=== PATIENT | female | born 1955 | race Caucasian/White ===

== ENCOUNTER 2017-03-10 20:04 | Inpatient (IN) | payer MEDICARE ==
[~2017-03-10] VITALS: Ht 170.2 cm; Wt 57.0 kg
[2017-03-10 20:08] VITALS: BP 138/95
[2017-03-10] MEDS ORDERED: BACLOFEN 10MG T10 MG PO (20:22)
[2017-03-10] MEDS ORDERED: GLYCOPYRROLATE1 MG PO (20:24)
[2017-03-10] MEDS ORDERED: RILUTEK50 MG PO (20:24)
[2017-03-10] MEDS ORDERED: NATURAL VITAM1000 MG PO (20:25)
[2017-03-10] MEDS ORDERED: HYOSCYAMINE0.125 M1 PO (20:26)
[2017-03-10] MEDS ORDERED: MELATIN1 TAB PO (20:27)
[2017-03-10] MEDS ORDERED: MIRALAX17 GM/PACK PO (20:28)
[2017-03-10 20:40] LABS: LYMPH # 1.2 K/mm3 (0.7-4.5); LYMPH % 9.4 % (10-50.0)
--- NOTE | 2017-03-10 20:50 | Emergency Room Report ---
History of Present Illness Time Seen by 2021 Presenting Problem in Triage Pt arrived:Ambulance Stretcher Presenting Problem:PATIENT FROM ASSISTED WITH ALS.REPORTS GENERALIZES SINCE THIS AM COUGHING WITH YELLOW SPUTUM. 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 N Clinical Suspician of Infection? N Mental Status: 1 - Regular (Normal Baseline) Sepsis Risk:Possible Sepsis Risk Have you (or family members/close friends) recently traveled outside the [place]? N If Yes, where/when: Have you had exposure to infectious disease within the past month? N TB? Other? Specify: Comment The patient is brought in by ambulance from the long-term with reports of increased lethargy, muscle weakness, increased edema, scattered rhonchi throughout lung rodriguez. She was started on Lasix per G-tube. She currently denies any pain. She denies shortness of breath. She denies vomiting or diarrhea. He has ALS, she communicates by writing on a board. ALLERGIES Coded Allergies: No Known Allergies (03/10/17) Home Medications Reported Medications BACLOFEN (Baclofen) 10 MG PO TID Glycopyrrolate 1 MG PO BID Riluzole (Rilutek) 50 MG PO BID Ascorbic Acid (Vitamin C) 1,000 MG PO DAILY HYOSCYAMINE SULFATE (Anaspaz) 0.125 MG PO TID PRN SECRETIONS MELATONIN (Melatin) 1 TAB PO DAILY PRN SLEEP Polyethylene Glycol 3350 (Miralax) 17 GM PO DAILY PRN CONSTIPATION History Medical History General CAD? No Angina: No NE: No Hypertension? No Hyperlipidemia? No CHF? No DVT? No PE? No COPD? No Asthma? No Anemia? No GERD? No Gastric ulcers? No GI Bleed? No Hernia? No Thyroid Problems? No Hypothyroidism? No CVA? No Seizures? No Diabetes? No Renal Insuffiency? No End Stage Renal Disease? No UTI? No Stones? No BPH? No GB Disease: No Nephritic Syndrome? No Asplenia? No Hepatitis? No Sickle Cell Disease? No Arthritis? No Migraines? No Cataracts? No Glaucoma? No MRSA? No HIV? No TB? No Anxiety? Yes Depression? Yes Cancer? Yes Site: BREAST More? Yes Additional hx: ALS, DYSPHAGIA, DYSARTHRIA, ANARTHRIA APNEA Immunization Hx DT/Tetanus Unknown Surgical Hx Previous Surgery?Y R MASTECTOMY G TUBE Social History Smoking Hx Smoker: Never Smoker Tobacco: No Type Cigarettes Alcohol Alcohol: No Review of Systems All Other Systems Reviewed and Negative (Limited by condition) Constitutional denies fever Respiratory denies shortness of breath Cardiovascular denies chest pain, edema Gastrointestinal denies abdominal pain, denies diarrhea, denies vomiting Psychiatric/Neurological denies headache Physical Exam Vital Signs Vital Signs Date Time Temp Pulse Resp B/P Pulse O2 O2 Flow FiO2 Ox Delivery Rate 03/10 2146 99.0 97 22 155/93 97 2 03/10 2101 104 22 143/95 95 03/10 2008 98.4 110 22 138/95 95 03/10 2007 95 General Appearance speech dysarthric Eye Exam - bilateral eye normal exam, bilateral eye PERRL, bilateral eye EOMI Ear, Nose, Throat hearing grossly normal, normal ENT inspection Neck normal inspection, non-tender, supple, full range of motion Respiratory Status Yes: trachea midline, chest symmetrical, non tender chest. No: respiratory distress. Lung Sounds bilateral: normal breath sounds, lungs clear. Cardiovascular normal exam, regular rate/rhythm, no peripheral edema, no gallop, no JVD, no murmur, no rub, normal peripheral pulses Peripheral Pulses Pulses normal Yes Gastrointestinal normal bowel sounds, normal exam, non tender, soft, no organomegaly Extremities 2+ pitting edema of feet, 1+ pitting edema of ankles. RIGHT foot dorsum shows erythema and warmth, but no tenderness. Calves are nontender. No cords. Normal pulses, capillary refill, sensation, movement of toes. No openings in the skin noted. Neurologic alert, generalized weakness Mental status normal mood/affect Skin intact, normal color, warm/dry Medical Decision Making LABS/Meds/Orders Pt receiving controlled substance in ED? No Results/Orders Laboratory Tests 03/10/17 2015: Lactic Acid 1.5 03/10/17 2015: Creatine Kinase 354 H, CK-MB (CK-2) Rel Index 3.2, CK and CKMB Interp 11.2 *H, Troponin I 0.71 H 03/10/17 2015: B-Natriuretic Peptide 12 03/10/172014: Sodium 135 L, Potassium 3.7, Chloride 93 L, Carbon Dioxide 39 H, BUN 14, Creatinine 0.4 L, Estimated Creat Clear 127, Estimated GFR (MDRD) 162, Glucose 91, Calcium 9.0, Total Bilirubin 0.3, AST 51 H, ALT 54, Alkaline Phosphatase 115, Total Protein 8.1, Albumin 3.4, Globulin 4.7 H, Albumin/Globulin Ratio 0.7 L, D-Dimer 196, WBC 12.9 H, RBC 4.67, Hgb 14.0, Hct 43.4, MCV 92.8, RDW 12.7, Plt Count 198, MPV 8.6, Gran % 82.4 H, Gran # 10.6 H, Lymphocytes % 9.4 L, Monocytes % 7.0, Eosinophils % 0.9, Basophils % 0.2, Lymphocytes # 1.2, Monocytes # 0.9, Eosinophils # 0.1, Basophils # 0.0, PUBS MCHC 32.3, MCH 30.0 Current Medication Orders Sig/Darcie Start time Last Medication Dose Route Stop Time Status Admin Miscellaneous 1 EACH CONSULT PHARMACY 03/10 2200 AC Information * 03/11 0950 Piperacillin Sod/ 3.375 GM ONCE ONE 03/10 2200 AC Tazobactam Sod IV 03/10 2229 Sodium Chloride 50 ML Aspirin 324 MG ONCE ONE 03/10 2130 DC 03/10 PO 03/10 Aspirin 0 .STK-MED ONE 03/10 2127 DC .ROUTE Sodium Chloride 10 ML PRN PRN 03/10 2030 AC IV 03/11 2017 Orders Procedure Date/time Status Decision to admit 03/10 2149 Active 12 LEAD EKG-ABRAHAN (INITIAL) 03/10 2058 Active ELECTROCARDIOGRAM REQUEST 03/10 2058 Active CARDIAC ENZYMES 03/10 2058 Complete D-DIMER 03/10 2057 Complete BRAIN NATRIURETIC PEPTIDE 03/10 2057 Complete CHEST-PORTABLE 03/10 2019 Active IV SALINE LOCK 03/10 2019 Active OXYGEN PER NURSE 03/10 2019 Active CULTURE, BLOOD 03/10 2019 Active LACTIC ACID 03/10 2019 Complete CBC WITH AUTO DIFF 03/10 2019 Complete CHEM 12 PROFILE 03/10 2019 Complete CM/EKG CM/EKG Comments EKG interpreted by Ferdinand Peraza MD: Rhythm: sinus tachycardia Rate: 102 [place]: normal Ectopy: none Conduction: normal ST Segment Changes: none T Wave Changes: none Q Waves: Inferior and anterior No evidence of acute ischemia or injury Significant baseline artifact present No prior electrocardiograms available for comparison XRAY/CT/US XRAY/CT/US XRAY chest Comment X-ray interpreted by Ferdinand Peraza M.D.: normal heart size, no effusions, no infiltrates Progress - 9:45 PM: I have discussed the case with Dr. Delaney who agrees to admit the patient to the hospital. We discussed the patient's clinical information, including history, exam, laboratory and radiology results and ED course. Per hospital procedure, I will write temporary bridge inpatient orders on the patient. Specific orders requested by the admitting physician: Vancomycin and Zosyn, serial cardiac enzymes 10:00 PM: Daughter is now here. I discussed findings with her. She states the patient's swelling of the legs began on February 24. She endorses the symptoms listed in the patient's transfer paperwork Departure Departure Disposition Still a Patient Clinical Impression Primary Impression: Cellulitis of right foot Secondary Impressions: Cardiac enzymes elevated Condition STABLE ED Critical Care Critical Care No
--- OUTSIDE RECORDS SUMMARY | 2017-03-10 21:02 | External Medical Summary Rpt ---
Demographics Home Phone Preferred Language Tamazight Marital Status Unknown Anabaptist Affiliation Unknown Race Unknown Ethnic Group Unknown Author Author , Organization [employer] Address Unknown Phone Unavailable Purpose Continuity of Care Document - through 2016
--- OUTSIDE RECORDS SUMMARY | 2017-03-10 21:02 | External Medical Summary Rpt ---
Author Author [employer], [employer] Organization [employer] Address Unknown Phone Unavailable
--- OUTSIDE RECORDS SUMMARY | 2017-03-10 21:02 | External Medical Summary Rpt ---
Author Author [employer] Organization [employer] Address Unknown Phone Unavailable Purpose Continuity of Care Document - through 2016
--- OUTSIDE RECORDS SUMMARY | 2017-03-10 21:02 | External Medical Summary Rpt ---
Demographics Home Phone Preferred Language Wolof Marital Status Unknown Lutheran Affiliation Unknown Race Unknown Ethnic Group Unknown Author Author , Organization [employer] Address Unknown Phone Unavailable Purpose Continuity of Care Document - through 2016
[2017-03-10 23:14] VITALS: BP 155/93
[2017-03-10 23:23] VITALS: BP 133/61
[2017-03-11] VITALS (7 sets, daily range): BP systolic 114–194; BP diastolic 72–101
[2017-03-11 07:36] LABS: HEMOGLOBIN 14.3 g/dL (12.2-16.2); LYMPH # 1.3 K/mm3 (0.7-4.5); LYMPH % 10.2 % (10-50.0)
--- NOTE | 2017-03-11 08:21 | HISTORY AND PHYSICAL REPORT ---
History and Physical ([facility]) Date of admission: 03/10/17 Chief complaint: Weakness, swelling, chest congestion History: History of Present Illness: Ms. Allen is a 62-year-old white female a resident of [facility] who is unknown to me.. She has advanced ALS followed by Dr. Hanson at . She has dysarthric speech related to her ALS and has difficulty communicating but her daughter is at the bedside and provides her history. Until December she was living at home with her daughter and son-in-law until her needs progressed to the point that she was admitted to the [facility] in December. Her daughter notes that she typically is able to be independent and ambulates on her own. However over the past couple weeks she started having swelling in her feet and legs and became weaker. No history of shortness of breath or chest pain. [facility] had just started her on Lasix. Yesterday the nursing staff noted she was having increased chest congestion and lethargy and she was therefore sent to the emergency room for further evaluation. On evaluation in the emergency room she was noted to have some airway rhonchi. There was bilateral lower extremity edema and some increased erythema of the right foot with concern for cellulitis. Her white blood cell count was mildly elevated and her cardiac enzymes were also elevated. EKG showed no ischemic changes. Chest x-ray was unremarkable. She was admitted with the diagnosis of cellulitis, elevated cardiac enzymes, possible bronchitis for further evaluation and treatment. She rested fairly well through the night. She is able to answer yes and no questions appropriately. He denies chest pain or shortness of breath. She does have a slightly congested cough. She is n.p.o. because of her ALS and has a permanent G-tube. Her cardiac inzymes have trended downward Past Medical History: Medical History: CAD? No Angina: No MA: No Hypertension? No Hyperlipidemia? No CHF? No DVT? No PE? No COPD? No Asthma? No Anemia? No GERD? No Gastric ulcers? No GI Bleed? No Hernia? No Thyroid Problems? No Hypothyroidism? No CVA? No Seizures? No Diabetes? No Renal Insuffiency? No UTI? No Stones? No BPH? No GB Disease: No Nephritic Syndrome? No Asplenia? No Hepatitis? No Sickle Cell Disease? No Arthritis? No Migraines? No Cataracts? No Glaucoma? No MRSA? No HIV? No TB? No Anxiety? Yes Depression? Yes Cancer? Yes Site: BREAST More? Yes Additional hx: ALS, DYSPHAGIA, DYSARTHRIA Surgical history: Previous Surgery?Y bilateral mastectomy with reconstruction for right side breast cancer. G TUBE Medications: Reported Medications BACLOFEN (Baclofen) 10 MG PO QID Riluzole (Rilutek) 50 MG PO BID Ascorbic Acid (Vitamin C) 1,000 MG PO DAILY MELATONIN (Melatin) 3 MG PO QHS PRN SLEEP Furosemide 20 MG PO DAILY Acetaminophen 1,000 MG PO Q6HP PRN PAIN/FEVER Hyoscyamine Sulfate (Levsin-Sl) 0.125 MG SL Q8HP PRN EXCESS SALIVA Glycopyrrolate 1 MG PO BID HYOSCYAMINE SULFATE (Anaspaz) 0.125 MG PO TID PRN SECRETIONS Polyethylene Glycol 3350 (Miralax) 17 GM PO DAILY PRN CONSTIPATION Allergies: Coded Allergies: No Known Allergies (03/10/17) Family History: Family history: Negative for: CAD, DM, HTN, seizure, stroke. Additional family history: No family hx of ALS Social History: Smoking Hx Tobacco: No Smoker: Never Smoker Type: N/A Packs/day: N/A Are you exposed to second hand No Alcohol: Alcohol: No Hx of Drug Use: Drug Use? No Patient's support system is: excellent Review of Systems: Patient unresponsive? No Constitutional Positive for: lethargy, weak. No: recent weight loss. ENT No: ear ache, nasal congestion, sinus problems, sore throat. Cardiovascular Positive for: edema. No: PND, chest pain, palpitations. Respiratory No: shortness of air, hemoptysis, pleuritic pain, wheezing. GI Positive for: dysphagia. No: abdominal pain, constipation, diarrhea, hematemeis , melena, vomitting. (female) No: flank pain, hematuria. Skin No: bruising, itching, rash. Neurological Positive for: unable to speak (dysarthric). No: change in LOC, bowel dysfunction, confusion, syncope. Immune/allergy No: hives, itching. Eyes No: vision loss, photophobia. Musculoskeletal Positive for: extremity swelling. No: joint pain. Heme No: bruising. Psychiatric Positive for: anxious. No: confused. Physical Exam: Vital signs: 1ST Vital Signs Result Date Time Pulse Ox 95 03/10 2007 O2 Flow Rate 2 03/10 2007 Resp 22 03/10 2007 B/P 138/95 03/10 2008 Temp 98.4 03/10 2008 Pulse 110 03/10 2008 O2 Delivery ROOM AIR 03/10 2314 Exam: General appearance: alert, no acute distress, normal eye contact Eyes: anicteric, conjunctiva clear, EOM's w/normal ROM ENT: mucous membranes moist, pharynx normal Neck: no carotid bruit, supple Cardiovascular: regular rate & rhythm, no murmur Respiratory: clear to auscultation, normal breath sounds ABD: non-distended, normal bowel sounds, soft, no tenderness, no guarding, GT in place Extremities: trace edema and erythema of right foot Musculoskeletal: generalized weakness Skin: dry, normal color, warm Neuro: alert, speech dysarthric, generalized weakness Lab data: Labs: Laboratory Tests 03/11/17 0650: Creatine Kinase 220 H, CK-MB (CK-2) Rel Index 3.7, CK and CKMB Interp 8.2 *H, Troponin I 0.28 H, WBC 13.2 H, RBC 4.80, Hgb 14.3, Hct 45.1, MCV 94.1, RDW 12.7, Plt Count 224, MPV 8.4, Gran % 84.1 H, Gran # 11.1 H, Lymphocytes % 10.2 , Monocytes % 4.8, Eosinophils % 0.7, Basophils % 0.2, Lymphocytes # 1.3, Monocytes # 0.6, Eosinophils # 0.1, Basophils # 0.0, PUBS MCHC 31.6 L, MCH 29.7 03/11/17 0400: Creatine Kinase 215 H, CK-MB (CK-2) Rel Index 3.9, CK and CKMB Interp 8.3 *H, Troponin I 0.37 H 03/11/17 0110: Creatine Kinase 266 H, CK-MB (CK-2) Rel Index 3.2, CK and CKMB Interp 8.5 *H, Troponin I 0.47 H 03/10/17 2015: Lactic Acid 1.5 03/10/17 2015: Creatine Kinase 354 H, CK-MB (CK-2) Rel Index 3.2, CK and CKMB Interp 11.2 *H, Troponin I 0.71 H 03/10/17 2015: B-Natriuretic Peptide 12 03/10/17 2015: Sodium 135 L, Potassium 3.7, Chloride 93 L, Carbon Dioxide 39 H, BUN 14, Creatinine 0.4 L, Estimated Creat Clear 127, Estimated GFR (MDRD) 162, Glucose 91, Calcium 9.0, Total Bilirubin 0.3, AST 51 H, ALT 54, Alkaline Phosphatase 115, Total Protein 8.1, Albumin 3.4, Globulin 4.7 H, Albumin/Globulin Ratio 0.7 L, D-Dimer 196, WBC 12.9 H, RBC 4.67, Hgb 14.0, Hct 43.4, MCV 92.8, RDW 12.7, Plt Count 198, MPV 8.6, Gran % 82.4 H, Gran # 10.6 H, Lymphocytes % 9.4 L, Monocytes % 7.0, Eosinophils % 0.9, Basophils % 0.2, Lymphocytes # 1.2, Monocytes # 0.9, Eosinophils # 0.1, Basophils # 0.0, PUBS MCHC 32.3, MCH 30.0 Microbiology 03/11 2017 SPUTUM: Sputum Culture - RES 03/11 2017 SPUTUM: Gram Stain - RES 03/10 2015 BLOOD: Anaerobic Blood Culture - RECD 03/10 2015 BLOOD: Aerobic Blood Culture - RECD 03/10 2015 BLOOD: Anaerobic Blood Culture - RECD 03/10 2015 BLOOD: Aerobic Blood Culture - RECD Diagnosis(es): 1. Cellulitis of right foot 2. Cardiac enzymes elevated 3. Leg edema 4. ALS (amyotrophic lateral sclerosis) 5. Dysarthria 6. Dysphagia, neurologic 7. Acute bronchitis Plan: She has been admitted and empirically started on vancomycin and Zosyn for her cellulitis and possible upper respiratory infection. We will repeat her chest x- ray today. Serial cardiac enzymes have trended downward and she denies any current or recent chest pain. There is no history of coronary disease. In light of her recent increased edema, we'll plan to obtain an echocardiogram during this admission. She will be continued [facility] the [facility] as well as her current tube feedings. She is a DNR status and these wishes will be honored. at [id number]
--- NOTE | 2017-03-11 08:35 | RADIOLOGY REPORT PS360 ---
CHEST-PORTABLE COMPARISON: None HISTORY: Generalized weakness, rales and just TECHNIQUE: Portable upright chest FINDINGS: Is a somewhat poor inspiration however lung rodriguez are clear of infiltrate. There is subtle diffuse increased opacity of the lower lung rodriguez and this is likely secondary to the fact the patient has bilateral breast implants which show minimal scattered calcification in the rims of the implants. Cardiac size is normal and the vascularity is normal. There are couple of surgical clips right axilla. IMPRESSION: Nonacute chest findings
--- NOTE | 2017-03-11 11:35 | PHARMACY CLINIC NOTE ---
Patient Demographics Patient Demographics Admission date: 03/10/17 Date: 03/11/17 Time: 1134 Allergies Coded Allergies: No Known Allergies (03/10/17) HEIGHT- FT: 5 IN: 7.00 K.955 VTE General Information Labs: Laboratory Tests 03/11 Hematology Hgb (12.2 - 16.2 g/dL) 14.3 14.0 Hct (37.0 - 47.0 %) 45.1 43.4 Plt Count (142 - 424 K/mm3) 224 198 Disclaimer The following section includes nursing documentation that has been pulled in for pharmacy review. Patient's VTE score: 2 Patient's VTE Risk: VERY LOW RISK Clinical trial participant? No VTE prophylaxis NQF [id number] VTE prophylaxis ordered? Yes Type of prophylaxis/treatment: DENICE at [id number]
--- NOTE | 2017-03-11 11:48 | RADIOLOGY REPORT PS360 ---
CHEST-PORTABLE COMPARISON: Portable upright chest 03/10/2017 HISTORY: Symptoms of bronchitis TECHNIQUE: Portable upright chest FINDINGS: This is a slightly poor inspiration however lung rodriguez are clear of infiltrate. Cardiac size is normal and the vascularity is normal. Subtle hazy opacities are seen at the lung bases likely secondary to the patient's bilateral breast implants. There are monitor lines overlying the chest. IMPRESSION: Nonacute chest findings
[2017-03-11] MEDS ORDERED: FUROSEMIDE20 MG PO (13:45)
[2017-03-11] MEDS ORDERED: ACETAMINOPHEN500 M4 PO (13:47)
[2017-03-11] MEDS ORDERED: LEVSIN-SL0.125 MG SL (13:48)
--- NOTE | 2017-03-11 14:27 | CONSULT NOTE ---
Pharmacokinetic Consult Date of consult: 03/11/17 Time of consult: 1423 Referring provider: DR. ALFORD Reason for consult: VANCOMYCIN DOSING Allergies: Coded Allergies: No Known Allergies (03/10/17) Home Medications: Reported Medications BACLOFEN (Baclofen) 10 MG PO QID Riluzole (Rilutek) 50 MG PO BID Ascorbic Acid (Vitamin C) 1,000 MG PO DAILY MELATONIN (Melatin) 3 MG PO QHS PRN SLEEP Furosemide 20 MG PO DAILY Acetaminophen 1,000 MG PO Q6HP PRN PAIN/FEVER Hyoscyamine Sulfate (Levsin-Sl) 0.125 MG SL Q8HP PRN EXCESS SALIVA Glycopyrrolate 1 MG PO BID HYOSCYAMINE SULFATE (Anaspaz) 0.125 MG PO TID PRN SECRETIONS Polyethylene Glycol 3350 (Miralax) 17 GM PO DAILY PRN CONSTIPATION Height (feet): 5 Height (inches): 7.00 Medical History: CAD? No Angina: No NH: No Hypertension? No Hyperlipidemia? No CHF? No DVT? No PE? No COPD? No Asthma? No Anemia? No GERD? No Gastric ulcers? No GI Bleed? No Hernia? No Thyroid Problems? No Hypothyroidism? No CVA? No Seizures? No Diabetes? No Renal Insuffiency? No UTI? No Stones? No BPH? No GB Disease: No Nephritic Syndrome? No Asplenia? No Hepatitis? No Sickle Cell Disease? No Arthritis? No Migraines? No Cataracts? No Glaucoma? No MRSA? No HIV? No TB? No Anxiety? Yes Depression? Yes Cancer? Yes Site: BREAST More? Yes Additional hx: ALS, DYSPHAGIA, DYSARTHRIA Labs: Laboratory Tests 03/11/17 0650: Creatine Kinase 220 H, CK-MB (CK-2) Rel Index 3.7, CK and CKMB Interp 8.2 *H, Troponin I 0.28 H, WBC 13.2 H, RBC 4.80, Hgb 14.3, Hct 45.1, MCV 94.1, RDW 12.7, Plt Count 224, MPV 8.4, Gran % 84.1 H, Gran # 11.1 H, Lymphocytes % 10.2 , Monocytes % 4.8, Eosinophils % 0.7, Basophils % 0.2, Lymphocytes # 1.3, Monocytes # 0.6, Eosinophils # 0.1, Basophils # 0.0, PUBS MCHC 31.6 L, MCH 29.7 03/11/17 0400: Creatine Kinase 215 H, CK-MB (CK-2) Rel Index 3.9, CK and CKMB Interp 8.3 *H, Troponin I 0.37 H 03/11/17 0110: Creatine Kinase 266 H, CK-MB (CK-2) Rel Index 3.2, CK and CKMB Interp 8.5 *H, Troponin I 0.47 H 03/10/17 2015: Lactic Acid 1.5 03/10/17 2015: Creatine Kinase 354 H, CK-MB (CK-2) Rel Index 3.2, CK and CKMB Interp 11.2 *H, Troponin I 0.71 H 03/10/17 2015: B-Natriuretic Peptide 12 03/10/17 2015: Sodium 135 L, Potassium 3.7, Chloride 93 L, Carbon Dioxide 39 H, BUN 14, Creatinine 0.4 L, Estimated Creat Clear 127, Estimated GFR (MDRD) 162, Glucose 91, Calcium 9.0, Total Bilirubin 0.3, AST 51 H, ALT 54, Alkaline Phosphatase 115, Total Protein 8.1, Albumin 3.4, Globulin 4.7 H, Albumin/Globulin Ratio 0.7 L, D-Dimer 196, WBC 12.9 H, RBC 4.67, Hgb 14.0, Hct 43.4, MCV 92.8, RDW 12.7, Plt Count 198, MPV 8.6, Gran % 82.4 H, Gran # 10.6 H, Lymphocytes % 9.4 L, Monocytes % 7.0, Eosinophils % 0.9, Basophils % 0.2, Lymphocytes # 1.2, Monocytes # 0.9, Eosinophils # 0.1, Basophils # 0.0, PUBS MCHC 32.3, MCH 30.0 Microbiology 03/11 2017 SPUTUM: Sputum Culture - RES 03/11 2017 SPUTUM: Gram Stain - RES 03/10 2015 BLOOD: Anaerobic Blood Culture - RECD 03/10 2015 BLOOD: Aerobic Blood Culture - RECD 03/10 2015 BLOOD: Anaerobic Blood Culture - RECD 03/10 2015 BLOOD: Aerobic Blood Culture - RECD Plan: BASED ON PATIENT'S FACTORS, RECOMMEND CONTINUING WITH VANCOMYCIN 1 GM Q18H AT THIS TIME WITH NEXT DOSE SCHEDULED FOR 1500 TODAY. WILL OBTAIN TROUGH LEVEL TOMORROW MORNING PRIOR TO DOSE. PHARMACY WILL FOLLOW DAILY AND ADJUST APPROPRIATE. LANG VO PHARMNatali at [phone]
--- NOTE | 2017-03-11 15:30 | ACUTE CARE PROGRESS NOTE (QUA) ---
See Addendum Progress Notes Subjective Date 03/11/17 Time 1522 Note F/u Rounds: Returned to f/u on repeat CXR results and noted patient to be less responsive with more shallow respirations and increased resp rate. Maintaining sats at 90-92%. Nurses noted resp distress earlier when up to BSC but relieved with deep suctioning. Objective Exam General appearance: opens eyes but no verbal response. Cardiovascular: tachy but regular, no murmur Respiratory: RR 28 and shallow but o/w clear. No apparent secretions. Extremities: trace edema of right foot Reviewed: Repeat CXR again shows no acute infiltrates or pulmonary edema. No cardiomegaly Assessment/Plan Problem List 1. Cellulitis of right foot 2. Cardiac enzymes elevated 3. Leg edema 4. ALS (amyotrophic lateral sclerosis) 5. Dysarthria 6. Dysphagia, neurologic 7. Acute bronchitis Patient condition Guarded Plan: She is maintaining O2 sats but will check ABG to see if she is retaining CO2. She is DNR so treatment options are limited. This inpt stay is expected to cross 2 MNs from start of care Yes at 1534
[2017-03-11 16:43] LABS: ALLEN'S TEST PATIENT UNABLE; ARTERIAL ABE 19.7 MMOL/L (-2.4-+2.3); ARTERIAL PO2 144.2 MMHG (80-100); ARTERIAL TCO2 53.7 MMOL/L (23-27); OXYGEN 3.5LPM
--- NOTE | 2017-03-15 15:08 | DISCHARGE SUMMARY STANDARD ---
Discharge Summary (FCA2) Date of admission: 03/10/17 Date of discharge: 03/11/17 Problem List: 1. Respiratory failure 2. Respiratory acidosis 3. Cellulitis of right foot 4. Cardiac enzymes elevated 5. Leg edema 6. ALS (amyotrophic lateral sclerosis) 7. Dysarthria 8. Dysphagia, neurologic 9. Acute bronchitis History of present illness: Ms. Hill is a 62-year-old white female resident of [facility] who was unknown to Dr. Delaney. She has advanced ALS followed by Dr. Hanson at . She has dysarthric speech related to her ALS and has difficulty communicating but her daughter was at the bedside and provided her history. Until December she was living at home with her daughter and son-in-law until her needs progressed to the point that she was admitted to the [facility] in December. Her daughter noted that she typically was able to be independent and ambulate on her own. However over the few weeks prior to admission, she started having swelling in her feet and legs and became weaker. No history of shortness of breath or chest pain. Her primary physician at the long-term had just started her on Lasix. The nursing staff noted she was having increased chest congestion and lethargy and she was therefore sent to the emergency room for further evaluation. On evaluation in the emergency room she was noted to have some airway rhonchi. There was bilateral lower extremity edema and some increased erythema of the right foot with concern for cellulitis. Her white blood cell count was mildly elevated and her cardiac enzymes were also elevated. EKG showed no ischemic changes. Chest x-ray was unremarkable. She was admitted with the diagnosis of cellulitis, elevated cardiac enzymes, and possible bronchitis for further evaluation and treatment. She rested fairly well through the night. She was able to answer yes and no questions appropriately. She denied chest pain or shortness of breath. She had a slightly congested cough. She was n.p.o. because of her ALS and has a permanent G-tube. Her cardiac inzymes trended downward. Exam on admission: General appearance: alert, no acute distress, normal eye contact Eyes: anicteric, conjunctiva clear, EOM's w/normal ROM ENT: mucous membranes moist, pharynx normal Neck: no carotid bruit, supple Cardiovascular: regular rate & rhythm, no murmur Respiratory: clear to auscultation, normal breath sounds ABD: non-distended, normal bowel sounds, soft, no tenderness, no guarding, GT in place Extremities: trace edema and erythema of right foot Musculoskeletal: generalized weakness Skin: dry, normal color, warm Neuro: alert, speech dysarthric, generalized weakness Hospital Course: She was been admitted and empirically started on vancomycin and Zosyn for her cellulitis and possible upper respiratory infection. Serial cardiac enzymes trended downward and she denied any current or recent chest pain. There was no history of coronary disease. In light of her recent increased edema, an echocardiogram was ordered. She was continued on her maintenance medications from the long-term as well as her current tube feedings. She is a DNR status. A repeat CXR was ordered. She had just returned from her repeat CXR when there was noted to be less responsiveness with more shallow respirations and increased resp rate. Dr. Delaney went to see the patient. She was maintaining sats at 90-92%. He ordered an ABG and it showed respiratory acidosis. He felt this was on the basis of respiratory failure from her advanced ALS. He spoke to her daughter Bernadette, who had to return to her home in [place], and relayed the results of her blood gas and the deterioration in her respiratory status. She reiterated her mother's desire for DNR status. He offered a trial of BIPAP but Bernadette stated she had this available at the long-term and refused to use it. The plan was to continue with measures of comfort. Her family was at her bedside when her respirations ceased and her HR decreased and ceased. She was pronounced at 2225 and her remains were released to [facility]. Disposition: The patient's remains were released to the counts include 234 beds at the [facility]. at 1508
--- NOTE | 2017-03-15 15:08 | DISCHARGE SUMMARY STANDARD ---
Discharge Summary (FCA2) Date of admission: 03/10/17 Date of discharge: 03/11/17 Problem List: 1. Respiratory failure 2. Respiratory acidosis 3. Cellulitis of right foot 4. Cardiac enzymes elevated 5. Leg edema 6. ALS (amyotrophic lateral sclerosis) 7. Dysarthria 8. Dysphagia, neurologic 9. Acute bronchitis History of present illness: Ms. Hill is a 62-year-old white female resident of [facility] who was unknown to Dr. Delaney. She has advanced ALS followed by Dr. Hanson at . She has dysarthric speech related to her ALS and has difficulty communicating but her daughter was at the bedside and provided her history. Until December she was living at home with her daughter and son-in-law until her needs progressed to the point that she was admitted to the [facility] in December. Her daughter noted that she typically was able to be independent and ambulate on her own. However over the few weeks prior to admission, she started having swelling in her feet and legs and became weaker. No history of shortness of breath or chest pain. Her primary physician at the long term had just started her on Lasix. The nursing staff noted she was having increased chest congestion and lethargy and she was therefore sent to the emergency room for further evaluation. On evaluation in the emergency room she was noted to have some airway rhonchi. There was bilateral lower extremity edema and some increased erythema of the right foot with concern for cellulitis. Her white blood cell count was mildly elevated and her cardiac enzymes were also elevated. EKG showed no ischemic changes. Chest x-ray was unremarkable. She was admitted with the diagnosis of cellulitis, elevated cardiac enzymes, and possible bronchitis for further evaluation and treatment. She rested fairly well through the night. She was able to answer yes and no questions appropriately. She denied chest pain or shortness of breath. She had a slightly congested cough. She was n.p.o. because of her ALS and has a permanent G-tube. Her cardiac inzymes trended downward. Exam on admission: General appearance: alert, no acute distress, normal eye contact Eyes: anicteric, conjunctiva clear, EOM's w/normal ROM ENT: mucous membranes moist, pharynx normal Neck: no carotid bruit, supple Cardiovascular: regular rate & rhythm, no murmur Respiratory: clear to auscultation, normal breath sounds ABD: non-distended, normal bowel sounds, soft, no tenderness, no guarding, GT in place Extremities: trace edema and erythema of right foot Musculoskeletal: generalized weakness Skin: dry, normal color, warm Neuro: alert, speech dysarthric, generalized weakness Hospital Course: She was been admitted and empirically started on vancomycin and Zosyn for her cellulitis and possible upper respiratory infection. Serial cardiac enzymes trended downward and she denied any current or recent chest pain. There was no history of coronary disease. In light of her recent increased edema, an echocardiogram was ordered. She was continued on her maintenance medications from the long term as well as her current tube feedings. She is a DNR status. A repeat CXR was ordered. She had just returned from her repeat CXR when there was noted to be less responsiveness with more shallow respirations and increased resp rate. Dr. Delaney went to see the patient. She was maintaining sats at 90-92%. He ordered an ABG and it showed respiratory acidosis. He felt this was on the basis of respiratory failure from her advanced ALS. He spoke to her daughter Bernadette, who had to return to her home in [place], and relayed the results of her blood gas and the deterioration in her respiratory status. She reiterated her mother's desire for DNR status. He offered a trial of BIPAP but Bernadette stated she had this available at the long term and refused to use it. The plan was to continue with measures of comfort. Her family was at her bedside when her respirations ceased and her HR decreased and ceased. She was pronounced at 2225 and her remains were released to [facility]. Disposition: The patient's remains were released to the [facility]. at 1508
== END 2017-03-11 22:15 | disposition expired | DRG 189 ==
LOC: ER 20:04 → 2ND 21:51
PROVIDERS: Emergency Medicine; Family Medicine
DX: J96.00 Acute respiratory failure, unspecified whether with hypoxia or hypercapnia (principal); G12.21 Amyotrophic lateral sclerosis; L03.115 Cellulitis of right lower limb; J20.9 Acute bronchitis, unspecified
CPT/HCPCS: J2543; J3370